=== PATIENT | female | born 1940 | race Caucasian/White ===

== ENCOUNTER 2017-07-03 14:55 | Inpatient (IN) | payer MEDICARE, MEDICAID ==
[~2017-07-03] VITALS: Ht 152.4 cm; Wt 64.0 kg
--- NOTE | 2017-07-03 14:55 | NUR ---
HOSSEIN ON 5150 DTS/GD FOR MEDICAL CLEARANCE, PARANOIA, DELUSIONAL, UNABLE TO TAKE CARE OF SELF.
[2017-07-03] MEDS ORDERED: OLANZAPINE 5 MG TABLET ONE (15:22)
[2017-07-03] MEDS ORDERED: OLANZAPINE 5 MG TABLET PO ONE (15:30)
--- NOTE | 2017-07-03 15:33 | NUR ---
PT REFUSED ZYPREXA DR CORDERO AWARE
[2017-07-03 15:34] LABS: BASOPHILS # (AUTO) 0.1 /CMM (0.0-0.2); EOSINOPHILS # (AUTO) 0.1 /CMM (0.0-0.7); EOSINOPHILS % (AUTO) 1.1 % (0.0-6.0); HEMATOCRIT 39 % (33-45); HEMOGLOBIN 12.9 g/dL (11.5-14.8); LYMPHOCYTES # (AUTO) 1.6 /CMM (0.8-4.8); LYMPHOCYTES % (AUTO) 21.1 % (20.0-44.0); MEAN CORPUSCULAR HEMOGLOBIN 31 PG (26.0-33.0); MEAN CORPUSCULAR HGB CONC 33 g/dl (31.0-36.0); MEAN CORPUSCULAR VOLUME 92 fL (82-100); MONOCYTES # (AUTO) 0.4 /CMM (0.1-1.30); MONOCYTES % (AUTO) 5.4 % (2.0-12.0); NEUTROPHILS # (AUTO) 5.2 /CMM (1.8-8.9); NEUTROPHILS % (AUTO) 71.4 % (43.0-81.0); PLATELET COUNT (AUTO) 191 /CMM (150-450); RDW COEFFICIENT OF VARIATION 11.9 (11.5-15.0); RED BLOOD CELL COUNT(AUTO) 4.18 MIL/uL (4.0-5.2); WHITE BLOOD COUNT (AUTO) 7.4 K/uL (4.3-11.0)
[2017-07-03 15:44] LABS: CALCIUM, SERUM 8.7 mg/dL (8.5-10.1); CARBON DIOXIDE 26 mmol/L (21-32); CHLORIDE 108 mmol/L (98-107); CREATININE 0.7 mg/dL (0.6-1.3); GLUCOSE 101 mg/dL (74-106); POTASSIUM 3.7 mmol/L (3.5-5.1); SODIUM SERUM 142 mmol/L (136-145); UREA NITROGEN, BLOOD 19 mg/dL (7-18)
[2017-07-03 15:50] LABS: ALANINE AMINOTRANSFERASE 22 U/L (12-78); ALBUMIN 3.7 g/dL (3.4-5.0); ALCOHOL, BLOOD < 3 mg/dL (0-0); ALKALINE PHOSPHATASE 52 U/L (46-116); ASPARTATE AMINOTRANSFERASE 16 U/L (15-37); BILIRUBIN,DIRECT 0.2 mg/dL (0.0-0.2); BILIRUBIN,TOTAL 1.1 mg/dL (0.2-1.0); TOTAL PROTEIN, SERUM 6.9 g/dL (6.4-8.2)
[2017-07-03 15:51] LABS: ACETAMINOPHEN 0 ug/ml (10-30)
[2017-07-03 17:02] LABS: APPEARANCE,URINE Clear (CLEAR); BILIRUBIN,URINE Negative (NEGATIVE); BLOOD, URINE Trace-lysed Ery/uL (NEGATIVE); COLOR,URINE Yellow (YELLOW); KETONES,URINE Negative (NEGATIVE); LEUKOCYTE ESTERASE ,URINE Moderate (NEGATIVE); NITRITE, URINE Negative (NEGATIVE); PROTEIN,URINE Negative (NEGATIVE); UGLUCOSE Negative (NEGATIVE); UROBILINOGEN,URINE 0.2 EU/dL (0.2)
--- NOTE | 2017-07-03 17:03 | NUR ---
URINE SAMPLE COLLECTED SENT TO LAB
[2017-07-03 17:08] LABS: BACTERIA,URINE Rare /HPF (None Seen); RBC,URINE 0-3 /HPF (0-2); SQUAMOUS EPITHELIAL CELL,UR Few /HPF (None Seen)
[2017-07-03] MEDS ORDERED: CEPHALEXIN MONOHYDRATE 500 MG CAPSULE PO ONE (18:17)
[2017-07-03] MEDS: CEPHALEXIN MONOHYDRATE 500 MG CAPSULE PO ONE ×2 (18:17→18:20)
--- NOTE | 2017-07-03 18:25 | NUR ---
REFUSED KELFEX FOR UTI. GAVE REPORT TO LETY GUNN GPS PSYCHOSIS DR BEATRIS LACKEY PSYCHOSIS DX
[2017-07-03 20:00] VITALS: BP 158/78
[2017-07-03 20:55] VITALS: BP 138/80
[2017-07-03] MEDS ORDERED: MAG HYDROX/AL HYDROX/SIMETH 30 ML UDC PO PRN (21:00)
[2017-07-03] MEDS ORDERED: LORAZEPAM 0.5 MG TABLET PO PRN (21:00)
[2017-07-03] MEDS ORDERED: MAGNESIUM HYDROXIDE 30 ML UDC PO PRN (21:00)
--- NOTE | 2017-07-03 21:41 | NUR ---
ADMISSION NOTES ADMITTED THIS 77 Y/O FEMALE PATIENT ADMIT FROM [facility] , PT. INTIALLY CAME FROM HOME. PT IS ON 5150 HOLD FOR GD, DANGER TO HER SELF , PER HOLD PARANOID, DELUSIONAL,SHE BELIEVE PEOPLE ARE GOING INSIDE HER CAR TAKING ALL HER BELONGINGS AND THINK SOME ONE PLANTED AT [place] IN HER CAR ,DISORGNIZED, UNABLE TO SELF CARE . UPON FACE TO FACE ASSESSMENT PATIENT IS A&O X-1,2, PARANOID DISORGANIZED THOUGHTS DISHELVED , EASILY AGITATED , PT. IS POOR HISTORIAN, POOR INSIGHT ,POOR JUDGEMENT ,V/S WNL, NO ACUTE RESPIRATORY , UNOBTAIN TO ANY MEDICAL HX AND LIST OF MEDICATION ,MD AWARE AND NOTIFIED OF THE ADMISSION, PT. REFUSED TO SIGNS ON ADMISSION PAPERS, SKIN ASSESSMENT DONE SKIN IS INTACT. ENCOURAGED PT. VERBALIZED ANY FEELING CONCERN TO STAFF, ORIENT TO UNIT POLICY, WILL CONTINUE TO MONITOR FOR Q15 SAFETY AND BEHAVIOR.
[2017-07-03] MEDS ORDERED: OLAN5TAB3 PO (22:24)
[2017-07-04 06:46] LABS: CHOLESTEROL 161 mg/dL (<200); HDL CHOLESTEROL 59 mg/dL (40-60); LDL 96 mg/dL (0-99); TRIGLYCERIDES 46 mg/dL (30-150)
[2017-07-04 08:00] VITALS: BP 135/78
[2017-07-04 08:36] LABS: CREATININE 0.7 mg/dL (0.6-1.3)
--- NOTE | 2017-07-04 14:20 | NUR ---
Called Dr. Hudson for the consult and left a message.
[2017-07-04] MEDS: OLANZAPINE 5 MG/TAB.RAPDIS PO SCH ×2 (15:31→21:39)
[2017-07-04 15:58] VITALS: BP 112/55
--- NOTE | 2017-07-04 16:00 | NUR ---
Initial Discharge Plan: [facility] [address] [place] [address] [facility] [address]; [phone] and wants to return home upon discharge. SW inquired about emergency contact information in order to assist with support system upon discharge, however pt stated not having any contacts. SW will continue to assess and follow up. SW will help form a safe and proper discharge.
[2017-07-04 20:00] VITALS: BP 116/72
[2017-07-04] MEDS: ZOLPIDEM TARTRATE 5 MG TABLET PO PRN (21:39)
[2017-07-05 08:00] VITALS: BP 127/71
--- NOTE | 2017-07-05 08:00 | NUR ---
GPS RN AM NOTES PT IS ON 5150 HOLD FOR GD, DANGER TO HER SELF , PER HOLD PARANOID, DELUSIONAL,SHE IS DISORGNIZED, UNABLE TO SELF CARE PATIENT IS A&O X-1,2, PARANOID DISORGANIZED THOUGHTS DISHELVED , EASILY AGITATED , PT. IS POOR HISTORIAN, POOR INSIGHT ,POOR JUDGEMENT ,V/S WNL, NO ACUTE RESPIRATORY PROBLEM. SKIN IS INTACT. ENCOURAGED PT. VERBALIZED ANY FEELING CONCERN TO STAFF, ORIENT TO UNIT POLICY, WILL CONTINUE TO MONITOR FOR Q15 SAFETY AND BEHAVIOR.
[2017-07-05] MEDS: OLANZAPINE 5 MG/TAB.RAPDIS PO SCH ×2 (08:55→21:11)
--- NOTE | 2017-07-05 08:56 | NUR ---
Patient refused Zyprexa stating she is not sick and does not need any medications. Patient stated: " I will not take any medications, you are trying to make me sick. I need to talk to the doctor so he can let me go home and pay my rent".
[2017-07-05 16:00] VITALS: BP 109/55
[2017-07-05 20:00] VITALS: BP 116/72
[2017-07-05] MEDS: ZOLPIDEM TARTRATE 5 MG TABLET PO PRN (22:04)
[2017-07-06 08:00] VITALS: BP 138/68
[2017-07-06] MEDS: OLANZAPINE 5 MG/TAB.RAPDIS PO SCH ×2 (09:07→21:48)
[2017-07-06 16:14] VITALS: BP 137/55
[2017-07-06 20:00] VITALS: BP 147/70
[2017-07-07] MEDS: OLANZAPINE 5 MG/TAB.RAPDIS PO SCH ×2 (07:57→20:42)
[2017-07-07 08:00] VITALS: BP 138/77
[2017-07-07 15:24] VITALS: BP 130/80
--- NOTE | 2017-07-07 19:30 | NUR ---
RN NOTE; RECEIVED PT IN ROOM. ALERT AND RESPONSIVE.BREATHING EVENLY. NO COMBATIVE BEHAVIOR. NO C/O PAIN OR DISCOMFORT. NO VERBALIZATION OF SUICIDE. WILL CONT TO MONITOR.
[2017-07-07 20:00] VITALS: BP 113/78
[2017-07-07 20:19] VITALS: BP 113/78
--- NOTE | 2017-07-08 06:44 | NUR ---
RN NOTE; PT IN BED SLEEPING, AROUSES EASILY. PT REMAINED COMPLIANT W/ MED AND POC . NO PSYCH OR BEHAVIORAL ISSUES NOTED. NO C/O PAIN OR DISCOMFORT. NEEDS ATTENDED. BED LOW LOCKED .WILL CONT TO MONITOR AND WILL ENDORSE TO AM SHIFT FOR TAINA .
[2017-07-08 08:00] VITALS: BP 115/62
[2017-07-08] MEDS: OLANZAPINE 5 MG/TAB.RAPDIS PO SCH ×2 (08:58→21:26)
--- NOTE | 2017-07-08 12:39 | NUR ---
garbage depot worker received a call from [facility] psychiatric social worker supervisor Danielle ([phone]) who stated that patient's living conditions are poor and that the application architect manager from [facility] wanted to start the process on getting patient evicted from the building. Management contact number is ([phone]). Per Danielle, they were going to send another psychiatric social worker supervisor to visit the patient in hospital. garbage depot worker will follow-up.
[2017-07-08 16:47] VITALS: BP 126/63
--- NOTE | 2017-07-08 19:30 | NUR ---
GPS RN NOTE, RECEIVED PATIENT AWAKE AND IN BED NO S/S OR COMPLAINTS OF PAIN AT THIS TIME. PATIENT IS DISPLAYING NO S/S OF APPARENT DISTRESS AT THIS TIME. PATIENT BREATHING IS UNLABORED WITH EQUAL RISE AND FALL OF THE CHEST. PATIENT IS ALERT AND ORIENTED X1 -2 ON ROOM AIR WITH A SPOO2 98%. PATIENT IS MED COMPLIANT, CONFUSED AT TIMES, ANXIOUS, DISORGANIZED, PARANOID, AND NEEDS REORIENTATION. PATIENT DENIES SUICIDE IDEATIONS AND HOMICIDAL IDEATIONS AT THIS TIME. PATIENT ASSISTED WITH TURNING AND REPOSITIONING Q2HR AND PRN FOR COMFORT AND CIRCULATION. PATIENT HAS NO NEEDS AT THIS TIME. PATIENT EDUCATED ON THE USE OF THE CALL ROBISON. PATIENT BED SIDE RAILS UP X 2 FOR SAFETY. PATIENT BED IS LOCKED AND LOW WILL CONTINUE TO MONITOR AND MAINTAIN SAFETY Q15 MIN WITH THE HELP OF STAFF.
--- NOTE | 2017-07-08 20:30 | NUR ---
GPS RN NOTE, LAYER UP ROBBIE MELENDEZ CAME TO THE FLOOR TO ASSESS PATIENT. ROBBIE ENDORSED CASE # [id number] / [id number] AND SAID THAT LAYER UP RAHUL BROWNGIAN # WILL BE A POINT OF CONTACT FOR [employer] ([facility]).
[2017-07-08 20:40] VITALS: BP 130/66
[2017-07-09 06:54] LABS: BASOPHILS % (AUTO) 0.4 % (0.0-2.0); EOSINOPHILS # (AUTO) 0.2 /CMM (0.0-0.7); EOSINOPHILS % (AUTO) 2.3 % (0.0-6.0); HEMATOCRIT 38 % (33-45); HEMOGLOBIN 12.9 g/dL (11.5-14.8); LYMPHOCYTES # (AUTO) 2.2 /CMM (0.8-4.8); LYMPHOCYTES % (AUTO) 32.9 % (20.0-44.0); MEAN CORPUSCULAR HEMOGLOBIN 32 PG (26.0-33.0); MEAN CORPUSCULAR HGB CONC 34 g/dl (31.0-36.0); MEAN CORPUSCULAR VOLUME 93 fL (82-100); MONOCYTES # (AUTO) 0.5 /CMM (0.1-1.30); NEUTROPHILS # (AUTO) 3.9 /CMM (1.8-8.9); NEUTROPHILS % (AUTO) 57.4 % (43.0-81.0); PLATELET COUNT (AUTO) 179 /CMM (150-450); RDW COEFFICIENT OF VARIATION 12.2 (11.5-15.0); RED BLOOD CELL COUNT(AUTO) 4.04 MIL/uL (4.0-5.2); WHITE BLOOD COUNT (AUTO) 6.8 K/uL (4.3-11.0)
[2017-07-09 07:09] LABS: CALCIUM, SERUM 8.6 mg/dL (8.5-10.1); CARBON DIOXIDE 25 mmol/L (21-32); CHLORIDE 108 mmol/L (98-107); CREATININE 0.8 mg/dL (0.6-1.3); GLUCOSE 94 mg/dL (74-106); POTASSIUM 4.5 mmol/L (3.5-5.1); SODIUM SERUM 143 mmol/L (136-145); UREA NITROGEN, BLOOD 27 mg/dL (7-18)
[2017-07-09 08:00] VITALS: BP 103/71
[2017-07-09] MEDS: OLANZAPINE 5 MG/TAB.RAPDIS PO SCH ×2 (08:30→21:37)
--- NOTE | 2017-07-09 15:15 | NUR ---
respite worker spoke to patient regarding discharge plan. Patient is refusing placement and stated that she wants to return home upon discharge. respite worker asked patient if she has any contacts or if she could provide her sons contact number, however, patient stated that she does not have much contact with her son and was unable to provide any contact numbers.
--- NOTE | 2017-07-09 15:17 | NUR ---
asbestos worker left a message for [facility] social service manager Danielle ([phone]) to inform her that patient is being discharged back home tomorrow. asbestos worker will follow-up.
--- NOTE | 2017-07-09 15:18 | NUR ---
cleaning and maintenance worker spoke to the manager spanish Jose ([phone]) from [facility] to inform him that patient is being discharged and will be returning home.
[2017-07-09 16:08] VITALS: BP 130/66
[2017-07-09 20:58] VITALS: BP 122/70
[2017-07-09] MEDS: ZOLPIDEM TARTRATE 5 MG TABLET PO PRN (21:36)
[2017-07-10 08:00] VITALS: BP 120/72
[2017-07-10] MEDS: OLANZAPINE 5 MG/TAB.RAPDIS PO SCH ×2 (08:50→22:11)
[2017-07-10 16:47] VITALS: BP 114/64
[2017-07-10 20:12] VITALS: BP 121/78
[2017-07-11 08:00] VITALS: BP 127/76
--- NOTE | 2017-07-11 08:16 | NUR ---
DR. SPEAR GAVE AN ORDER TO D/C HOLD AND D/C HOME TODAY. PT. WITHOUT DISTRESS, DENIES SUICIDAL AND HOMICIDAL AND TO FOLLOW UP WITH PSYCH AND MEDICAL DOCTORS.
[2017-07-11] MEDS: OLANZAPINE 5 MG/TAB.RAPDIS PO SCH (09:18)
--- NOTE | 2017-07-11 11:00 | NUR ---
SALES DEVELOPMENT DIRECTOR NOTES PATIENT DISCHARGE AT THIS TIME GOING HOME. PATIENT A/O X3, MED COMPLIANT, V/S STABLE, MEDICALLY STABLE, NO C/O PAIN AT THIS TIME. PATIENT DENIED SI/HI/AVH AT THIS TIME. MED RECONCILIATION, AND DISCHARGE ORDER REVIEWED AND EXPLAINED TO. PATIENT VERBALIZED UNDERSTANDING. BELONGING RETURNED BACK TO THE PATIENT. PATIENT SIGN PAPERWORK. PATIENT FINANCIAL ADVISOR BY [employer]. PHONE # [phone].
--- NOTE | 2017-07-11 12:14 | NUR ---
Discharge Note: Patient was discharged home to [address] [place] [address] [address], [facility] [address]; . Via [employer]. Patient does not have family to notify. Patient was agreeable with the discharge plan. Patient's mood and affect were appropriate upon discharge. Patient denied suicidal and homicidal ideations. Patient was referred to [facility] ([phone]) [address] [place] [address]. Patient agreed to follow-up with a psychiatrist within 30 days. Facilitated info to IDT team who are in agreement with discharge arrangement. The multidisciplinary exitcare form was done, printed, signed, and given to the patient.
== END 2017-07-11 11:00 | disposition home or self-care (01) | DRG 885 ==
LOC: ER 14:58 → GPS 18:04
PROVIDERS: ADMIT Psychiatry & Neurology Psychiatry; ATTEND Internal Medicine
DX: F29 Unspecified psychosis not due to a substance or known physiological condition (principal); N17.0 Acute kidney failure with tubular necrosis; N39.0 Urinary tract infection, site not specified; F32.9 Major depressive disorder, single episode, unspecified
CPT/HCPCS: 36415; 80048-TC; 80061-TC; 80076-TC; 80305; 81000-TC; 82565-TC; 85025-TC; 87081-TC; A4606; G0480; Z7610